=== PATIENT | female | born 1995 | race African-American/Black ===

== ENCOUNTER 2018-04-09 21:23 | Emergency (ER) | payer MEDICAID ==
[~2018-04-09] VITALS: Ht 154.9 cm; Wt 44.0 kg
--- NOTE | 2018-04-09 21:42 | NUR ---
Came in to ER c/o SOB, abdominal, chest and neck pains. To room 1B. Skin warm and dry. NAD noted. Seen and evaluated by Dr. Perry.
[2018-04-09 22:32] LABS: *URINE HCG, QUAL NEGATIVE (NEGATIVE)
--- NOTE | 2018-04-09 22:50 | NUR ---
Spoke to Dr. Perry regarding results of diagostic exams.
--- NOTE | 2018-04-09 23:05 | NUR ---
Patient discharged to home in stable conditon. Written and verbal after care instructions given. Patient verbalizes understanding of instructions. Received prescription. Information on medication provided.
[2018-04-09 23:06] VITALS: BP 110/74
== END 2018-04-09 23:05 | disposition home or self-care (01) ==
LOC: ER 21:23
DX: R07.9 Chest pain, unspecified (principal); F17.200 Nicotine dependence, unspecified, uncomplicated
CPT/HCPCS: 71045; 84703; 93005; 99285; 99406; A4663

== ENCOUNTER 2018-05-04 17:18 | Emergency (ER) | payer MEDICAID ==
[~2018-05-04] VITALS: Ht 157.5 cm; Wt 47.6 kg
--- NOTE | 2018-05-04 17:25 | NUR ---
Patient elinor to room ambulating with steady gait. Well groamed, clean patient with no respiratory distress. patient complains of sore throat. Dr Trejo is talking to patient.
--- NOTE | 2018-05-04 17:38 | NUR ---
patient discharge ambulating with stable gait. Patient refused to sign aftercare material. No prescritipion. No IV inserted on this visit.
[2018-05-04 17:39] VITALS: BP 114/67
== END 2018-05-04 17:41 | disposition home or self-care (01) ==
LOC: ER 17:20
DX: R59.0 Localized enlarged lymph nodes (principal); F17.200 Nicotine dependence, unspecified, uncomplicated
CPT/HCPCS: 99281; A4663